=== PATIENT | male | born 1975 | race African-American/Black ===

== ENCOUNTER 2017-06-12 10:26 | Emergency (ER) | payer BC, OTHER ==
[2017-06-12] MEDS ORDERED: Adacel (T-DAP) 0.5 ML VIAL ONE (10:39)
[2017-06-12] MEDS ORDERED: Oxymetazoline HCl 0.05% ( 15 ML ) ONE (11:34)
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
== END 2017-06-12 11:49 | disposition home or self-care (01) ==
LOC: ERS 10:26
DX: S02.2XXA Fracture of nasal bones, initial encounter for closed fracture (principal); S09.90XA Unspecified injury of head, initial encounter; S01.21XA Laceration without foreign body of nose, initial encounter; E11.9 Type 2 diabetes mellitus without complications; F17.210 Nicotine dependence, cigarettes, uncomplicated; W22.8XXA Striking against or struck by other objects, initial encounter; Z79.899 Other long term (current) drug therapy; Z79.84 Long term (current) use of oral hypoglycemic drugs; Z23 Encounter for immunization; Z71.6 Tobacco abuse counseling
CPT/HCPCS: 12011; 70486; 90471; 90715; 99406